=== PATIENT | male | born 1990 | race African-American/Black ===

== ENCOUNTER 2016-09-06 09:19 | Emergency (ER) | payer MEDICAID ==
[~2016-09-06] VITALS: Ht 180.3 cm; Wt 127.0 kg
[~2016-09-06 09:19] MED LIST: ALBUTEROL2.5 MG/3 M INH; LEVAQUIN500 MG ORAL; PREDNISONE10 MG ORAL; PROMETHAZINE-D118 ML ORAL; VENTOLIN HFA18 GM INH
[2016-09-06 11:15] VITALS: BP 148/81
[2016-09-06 11:17] VITALS: BP 148/81
--- NOTE | 2016-09-06 14:14 | Emergency Room Report ---
History of Present Illness General Chief Complaint: Wound Recheck/Suture Removal Source: Patient Present Illness HPI 26 YO M requesting wound/lac check. Patient endorses stabbing himself accidentally on grandma's fence last night. Had lac repaired at [facility] ED last night. Endorses wound oozing. Didnt full Rx for pain, Abx given at outside ED. Denies fever/chills, pus drainage from site. Allergies: Coded Allergies: PENICILLINS (Verified Allergy, Unknown, 05/01/16) Patient History Past Medical History: none Past Surgical History: none Pertinent Family History: none Social History: Denies: alcohol use, drug use, smoking Immunizations: UTD Reviewed Nursing Documentation: PMH: Agreed, PSxH: Agreed Nursing Documentation-PMH Past Medical History: No History, Except For Hx Asthma: Yes Review of Systems All Other Systems: negative except mentioned in HPI Physical Exam Vital Signs Date Time Temp Pulse Resp B/P Pulse Ox O2 Delivery O2 Flow Rate FiO2 09/06/16 10:15 98.4 97 20 148/81 100 Room Air Sp02 EP Interpretation: reviewed, normal General Appearance: normal inspection, well appearing, no apparent distress, alert Head: atraumatic ENT: normal ENT inspection, hearing grossly normal, normal voice Neck: normal inspection, full range of motion, supple, no bony tend Respiratory: normal inspection, lungs clear, normal breath sounds, no respiratory distress, no retraction, no wheezing Cardiovascular #1: regular rate, rhythm, no edema Gastrointestinal: normal inspection, normal bowel sounds, non tender, soft, no guarding, no hernia Genitourinary: no CVA tenderness Musculoskeletal: normal inspection, back normal, normal range of motion, Naty' s Sign negative Neurologic: normal inspection, alert, oriented x3, responsive, preassembler printed circuit board III-XII nml as tested, motor strength/tone normal, speech normal Psychiatric: normal inspection, judgement/insight normal, mood/affect normal Skin: normal inspection, normal color, no rash, other - Left inner thigh laceration: Blue sutures in place. No dehiscence. No pus. Healing well. Medical Decision Making Diagnostic Impression: Primary Impression: Suture check ER Course Mild oozing. No active infection. Pressure dressing place Advised keeping on for 24 hours then daily wound dressing change Reassured patient Advised filling Rx for Abx and Analgesia Return to [facility] for suture removal Last Vital Signs Date Time Temp Pulse Resp B/P Pulse Ox O2 Delivery O2 Flow Rate FiO2 09/06/16 11:17 98.4 20 148/81 100 Room Air 09/06/16 10:15 97 Status: improved Disposition: HOME, SELF-CARE Condition: Improved Referrals: [facility],REFERRING (PCP) Patient Instructions: Wound Check Additional Instructions: - Take ALL the antibiotics you were prescribed - Take T#3 as needed for pain - Keep pressure dressing on for 24 hours before changing - Followup at [facility] for suture removal AMANDA MCKEON M.D. Sep 06, 2016 14:14
== END 2016-09-06 11:13 | disposition home or self-care (01) ==
LOC: EMR 11:00
DX: S71.112D Laceration without foreign body, left thigh, subsequent encounter (principal); J45.909 Unspecified asthma, uncomplicated; Z88.0 Allergy status to penicillin
CPT/HCPCS: 99281

== ENCOUNTER 2016-09-21 20:47 | Emergency (ER) | payer MEDICAID ==
[~2016-09-21] VITALS: Ht 180.3 cm; Wt 127.0 kg
[2016-09-21] MEDS ORDERED: Hydrogen Peroxide 120ml Bottle TOPIC ONE (21:30)
[2016-09-21] MEDS ORDERED: PREDNISONE20 MG ORAL (21:33)
[2016-09-21] MEDS ORDERED: ALBUTEROL SULF8.5 GM INH (21:33)
[2016-09-21 23:47] VITALS: BP 121/84
[2016-09-21 23:48] VITALS: BP 121/84
--- NOTE | 2016-09-22 04:57 | Emergency Room Report ---
History of Present Illness General Chief Complaint: Upper Respiratory Illness Source: Patient Present Illness HPI Patient is a 26-year-old male presented after increased cough gradual onset of symptoms. Patient had some nasal congestion and as well as prior history of asthma. Patient also had some recent sutures placed and wanted suture removal the patient denied pain to the area or discharge.Patient reported having nonproductive cough. This is worse with supine position. Allergies: Coded Allergies: PENICILLINS (Verified Allergy, Unknown, 05/01/16) Patient History Reviewed Nursing Documentation: PMH: Agreed, PSxH: Agreed Nursing Documentation-PMH Past Medical History: No History, Except For Hx Asthma: Yes Review of Systems All Other Systems: negative except mentioned in HPI Physical Exam Vital Signs Date Time Temp Pulse Resp B/P Pulse Ox O2 Delivery O2 Flow Rate FiO2 09/21/16 21:01 98.2 80 14 119/80 100 Room Air General Appearance: well appearing, no apparent distress, alert, GCS 15, non- toxic Head: normocephalic, atraumatic ENT: hearing grossly normal, normal voice Neck: full range of motion, supple Respiratory: no respiratory distress, no accessory muscle use, speaking full sentences, wheezing, expiration Cardiovascular #1: normal peripheral pulses, regular rate, rhythm, no edema Musculoskeletal: normal inspection, no calf tenderness Neurologic: normal inspection, alert, oriented x3, responsive, normal gait Psychiatric: mood/affect normal Skin: no rash, other - healed laceration Medical Decision Making Diagnostic Impression: Primary Impression: Asthmatic bronchitis Additional Impression: Visit for suture removal ER Course Patient presented for cough.Differential diagnosis included but was not limited to bronchitis, pneumonia, pulmonary embolism, pericarditis, asthma, foreign body. Patient's benign exam and does not appear to require any further imaging or laboratory testing at this time. The patient declined breathing treatment. The patient given prescription for albuterol as well as prednisone. The patient was noted to have well-healed laceration and sutured removed. The patient is advised to follow up with primary care doctor in 1-2 days. Patient is advised to return if any worsening condition or if any changes in status that are concerning. Last Vital Signs Date Time Temp Pulse Resp B/P Pulse Ox O2 Delivery O2 Flow Rate FiO2 09/21/16 23:48 98.1 83 15 121/84 99 Room Air Status: improved Disposition: HOME, SELF-CARE Condition: Stable Scripts Albuterol Sulfate* (ALBUTEROL SULFATE MDI*) 8.5 Gm Hfa.aer.ad 2 PUFF INH Q4H Y for cough/wheezing, #1 EA 0 Refills Prov: Javed Martínez 09/21/16 Prednisone* (PREDNISONE*) 20 Mg Tablet 40 MG ORAL DAILY, #10 TAB Prov: Javed Martínez 09/21/16 Patient Instructions: Upper Respiratory Infection, Adult, Suture Removal, Care After Javed Martínez Sep 22, 2016 04:57
== END 2016-09-21 23:50 | disposition home or self-care (01) ==
LOC: EMR 21:20
DX: J45.909 Unspecified asthma, uncomplicated (principal); Z48.02 Encounter for removal of sutures; Z88.0 Allergy status to penicillin
CPT/HCPCS: 99284

== ENCOUNTER 2017-01-08 12:02 | Emergency (ER) | payer MEDICAID ==
[~2017-01-08] VITALS: Ht 180.3 cm; Wt 124.7 kg
[~2017-01-08 12:02] MED LIST changes: +ALBUTEROL SULF8.5 GM INH; +PREDNISONE20 MG ORAL
[2017-01-08 12:15] VITALS: BP 134/81
[2017-01-08] MEDS ORDERED: Norco 7.5mg/325mg tab ONE (12:24)
[2017-01-08] MEDS ORDERED: Norco 7.5mg/325mg tab ORAL ONE (12:30)
--- NOTE | 2017-01-08 12:32 | Emergency Room Report ---
History of Present Illness General Chief Complaint: Pain Source: Patient Present Illness HPI 26-year-old male presents emergency department complaining of 7/10 in severity pain after stubbing his toe on 01/03. Patient has appointment with package winder in 2 days however patient reports for continued pain. Patient states that his toenail was almost completely torn off. She denies bone pain. Reports significant tenderness and that he is noticing some redness about the cuticle. Denies numbness tingling or loss of sensation or gross motor movements of the extremities, incontinence of bowel or bladder. Denies CP, Palpitations, LOC, AMS , dizziness, Changes in Vision, Sensation, paresthesias, or a sudden severe headache. Allergies: Coded Allergies: PENICILLINS (Verified Allergy, Unknown, 05/01/16) Patient History Past Medical History: see triage record Past Surgical History: none Pertinent Family History: none Reviewed Nursing Documentation: PMH: Agreed, PSxH: Agreed Nursing Documentation-PMH Hx Asthma: Yes Review of Systems All Other Systems: negative except mentioned in HPI Physical Exam Vital Signs Date Time Temp Pulse Resp B/P Pulse Ox O2 Delivery O2 Flow Rate FiO2 01/08/17 12:05 97.9 102 16 134/81 98 Room Air Sp02 EP Interpretation: reviewed, abnormal - tachycardic at 102 General Appearance: no apparent distress, alert, GCS 15, non-toxic Head: normocephalic, atraumatic Eyes: bilateral eye PERRL, bilateral eye normal inspection ENT: hearing grossly normal, normal pharynx, no angioedema, normal voice Neck: full range of motion, supple/symm/no masses Respiratory: lungs clear, normal breath sounds, speaking full sentences Cardiovascular #1: regular rate, rhythm, no edema, normal capillary refill Gastrointestinal: normal bowel sounds, non tender, soft, no guarding, no rebound Rectal: deferred Genitourinary: normal inspection, no CVA tenderness Musculoskeletal: back normal, gait/station normal, normal range of motion, non- tender - no bony ttp of the left great toe. , no calf tenderness Neurologic: alert, oriented x3, responsive, motor strength/tone normal, sensory intact, speech normal Psychiatric: judgement/insight normal, memory normal, mood/affect normal Skin: normal color, no rash, warm/dry, well hydrated, other - left great toe nail avulsion, possible secondary infection with erythema and swelling noted about the cuticle , no sub-ungual hematoma, nail is free to allow drainage Medical Decision Making PA Attestation Dr. mondragon is my supervising Physician whom patient management has been discussed with. Diagnostic Impression: Primary Impression: Nail avulsion, toe Qualified Codes: S91.209A - Unspecified open wound of unspecified toe(s) with damage to nail, initial encounter Additional Impression: Paronychia of great toe of left foot ER Course 26-year-old male presents emergency department complaining of 7/10 in severity pain after stubbing his toe on 01/03. Patient has appointment with package winder in 2 days however patient reports for continued pain. Patient states that his toenail was almost completely torn off. She denies bone pain. Reports significant tenderness and that he is noticing some redness about the cuticle. Denies numbness tingling or loss of sensation or gross motor movements of the extremities, incontinence of bowel or bladder. Denies CP, Palpitations, LOC, AMS , dizziness, Changes in Vision, Sensation, paresthesias, or a sudden severe headache. Ddx considered but are not limited to Fracture, dislocation, contusion, nail avulsion , laceration Sprain/Strain/Spasm, eponychia, paronychia. Vital signs: are WNL, pt. is afebrile H&PE are most consistent with left great toe nail avulsion, possible secondary infection with erythema and swelling noted about the cuticle , no sub-ungual hematoma, nail is free to allow drainage. ORDERS: An apartment at this time as the diagnosis is clinical. ED INTERVENTIONS: -None required at this time as the diagnosis is clinical - Pt states he would rather have nail removal performed by package winder. - [place] PO DISCHARGE: At this time pt. is stable for d/c to home. Will provide printed patient care instructions, and any necessary prescriptions. Care plan and follow up instructions have been discussed with the patient prior to discharge. Last Vital Signs Date Time Temp Pulse Resp B/P Pulse Ox O2 Delivery O2 Flow Rate FiO2 01/08/17 12:05 97.9 102 16 134/81 98 Room Air Disposition: HOME, SELF-CARE Condition: Stable Scripts Ibuprofen* (MOTRIN*) 600 Mg Tablet 600 MG ORAL THREE TIMES A DAY, #30 TAB 0 Refills Prov: Rosetta Marcano 01/08/17 Hydrocodone Bit/Acetaminophen 7.5-325* (NORCO 7.5-325*) 1 Each Tablet 1 TAB ORAL Q8HR Y for For Pain, #9 TAB 0 Refills Prov: Rosetta Marcano 01/08/17 Doxycycline Hyclate* (VIBRAMYCIN*) 100 Mg Capsule 100 MG ORAL EVERY 12 HOURS for 7 Days, #14 CAP 0 Refills Prov: Rosetta Marcano 01/08/17 Patient Instructions: Nail Avulsion Additional Instructions: Take antibiotic medications as directed. Follow up with Documentation Analyst in 3-5 days for Nail removal. Return sooner to ED if new symptoms occur, or current symptoms become worse. - Please note that this Emergency Department Report was dictated using Jiberishinteractive media director technology software, occasionally this can lead to erroneous entry secondary to interpretation by the dictation equipment. Rosetta Marcano Jan 08, 2017 12:32
[2017-01-08] MEDS ORDERED: VIBRAMYCIN100 MG ORAL (12:34)
[2017-01-08] MEDS ORDERED: IBUPROFEN600 MG ORAL (12:35)
[2017-01-08] MEDS ORDERED: NORCO 7.5-3251 EACH ORAL (12:35)
[2017-01-08 12:39] VITALS: BP 134/81
== END 2017-01-08 12:39 | disposition home or self-care (01) ==
LOC: EMR 12:15
DX: S91.209A Unspecified open wound of unspecified toe(s) with damage to nail, initial encounter (principal); L03.032 Cellulitis of left toe; J45.909 Unspecified asthma, uncomplicated; Z88.0 Allergy status to penicillin; W22.09XA Striking against other stationary object, initial encounter; Y92.9 Unspecified place or not applicable
CPT/HCPCS: 99284

== ENCOUNTER 2017-03-26 16:13 | Emergency (ER) | payer MEDICAID ==
[~2017-03-26] VITALS: Ht 180.3 cm; Wt 120.2 kg
[~2017-03-26 16:13] MED LIST changes: +IBUPROFEN600 MG ORAL; +NORCO 7.5-3251 EACH ORAL; +VIBRAMYCIN100 MG ORAL
[2017-03-26 16:38] VITALS: BP 148/79
[2017-03-26] MEDS ORDERED: Albuterol ud Inhalation HHN ONE (17:00)
[2017-03-26] MEDS ORDERED: VENTOLIN HFA18 GM INH (17:25)
[2017-03-26] MEDS ORDERED: PREDNISONE20 MG ORAL (17:25)
[2017-03-26] MEDS ORDERED: ADVAIR 100-501 EACH INH (17:25)
--- NOTE | 2017-03-26 17:36 | Emergency Room Report ---
History of Present Illness General Chief Complaint: Flu Like Symptoms Source: Patient Present Illness HPI 26YOM known asthmatic and + smoker with 2-3 days productive cough, chest tightness Using albuterol every day Supposed to be on advair but doesnt take it - ran out of Rx while ago Denies fever/chills Not on prednisone Patient in waiting room playing on [employer], no acute distress Allergies: Coded Allergies: PENICILLINS (Verified Allergy, Unknown, 05/01/16) Patient History Past Medical History: asthma Past Surgical History: none Pertinent Family History: none Social History: Reports: smoking Immunizations: UTD Reviewed Nursing Documentation: PMH: Agreed, PSxH: Agreed Nursing Documentation-PMH Hx Asthma: Yes Review of Systems All Other Systems: negative except mentioned in HPI Physical Exam Vital Signs Date Time Temp Pulse Resp B/P (MAP) Pulse Ox O2 Delivery O2 Flow Rate FiO2 03/26/17 16:29 98.1 88 20 145/82 99 Room Air Sp02 EP Interpretation: reviewed, normal General Appearance: normal inspection, well appearing, no apparent distress, alert, GCS 15, non-toxic, obese, other - Well appearing, no acute distress. sitting calmly in chair Head: normocephalic, atraumatic Eyes: bilateral eye PERRL, bilateral eye EOMI ENT: normal ENT inspection, hearing grossly normal, normal voice Neck: normal inspection, full range of motion, supple, no bony tend Respiratory: normal inspection, lungs clear, normal breath sounds, no rhonchi, no respiratory distress, no retraction, no accessory muscle use, speaking full sentences, wheezing Cardiovascular #1: regular rate, rhythm, no edema Gastrointestinal: normal inspection, normal bowel sounds, non tender, soft, no guarding, no hernia Genitourinary: no CVA tenderness Musculoskeletal: normal inspection, back normal, normal range of motion, Naty' s Sign negative Neurologic: normal inspection, alert, oriented x3, responsive, wheel loader operator III-XII nml as tested, motor strength/tone normal, speech normal Psychiatric: normal inspection, judgement/insight normal, mood/affect normal Skin: normal inspection, normal color, no rash Medical Decision Making Diagnostic Impression: Primary Impression: Bronchitis ER Course 26YOM with likely acute bronchitis Mild end-exp wheeze on auscultation Was given 1 neb, prednisone for URI symptom, ?mild asthma exac CXR unchanged from Apr 2016 - no acute PNA or PTX Will start on Advair given number of times patient uses albuterol - likely moderate/severe asthma requiring long-acting steroid DC home with PMD followup Chest X-Ray Diagnostic Results Chest X-Ray Diagnostic Results : Chest X-Ray Ordered: Yes # of Views/Limited/Complete: 1 View Indication: Shortness of Breath EP Interpretation: Yes Interpretation: no consolidation, no effusion, no pneumothorax, no acute cardiopulmonary disease Impression: No acute disease Electronically Signed by: Dr Amanda Mckeon MD Last Vital Signs Date Time Temp Pulse Resp B/P (MAP) Pulse Ox O2 Delivery O2 Flow Rate FiO2 03/26/17 16:59 84 17 94 Room Air 03/26/17 16:38 98.1 148/79 Status: improved Disposition: HOME, SELF-CARE Condition: Improved Scripts Prednisone* (PREDNISONE*) 20 Mg Tablet 40 MG ORAL DAILY for 3 Days, #6 TAB Prov: AMANDA MCKEON M.D. 03/26/17 Albuterol Sulfate (VENTOLIN HFA) 18 Gm Hfa.aer.ad 1 PUFF INH EVERY 6 HOURS for cough, SOB, chest tightness, #18 GM 0 Refills Prov: AMANDA MCKEON M.D. 03/26/17 Fluticasone/Salmeterol (Advair 100-50 Diskus) 1 Each Blst.w.dev 1 PUFF INH TWICE A DAY for 7 Days, #1 EA Prov: AMANDA MCKEON M.D. 03/26/17 Patient Instructions: Asthma, Adult, [id number] Additional Instructions: - Start taking Advair TWICE daily no matter what - Use ventolin only as needed for rescue medication for cough, chest tightness, wheezing - Take prednisone next 3 days - Follow up with your primary care doctor in 3-4 days AMANDA MCKEON M.D. Mar 26, 2017 17:36
[2017-03-26 18:40] VITALS: BP_SYST 148; BP_SYST 152; BP_DIAS 79; BP_DIAS 81
--- NOTE | 2017-03-27 12:33 | Diagnostic Imaging Report ---
Indication: SOB Technique: One view of the chest Comparison: 05/01/2016 Findings: Lungs and pleural spaces are clear. Heart size is normal. No significant change Impression: No acute process
== END 2017-03-26 18:55 | disposition home or self-care (01) ==
LOC: EMR 17:58
DX: J20.9 Acute bronchitis, unspecified (principal); F17.200 Nicotine dependence, unspecified, uncomplicated; Z88.0 Allergy status to penicillin; E66.9 Obesity, unspecified; Z68.37 Body mass index [BMI] 37.0-37.9, adult
CPT/HCPCS: 71010; 99284

== ENCOUNTER 2018-05-21 19:41 | Emergency (ER) | payer MEDICAID ==
[~2018-05-21] VITALS: Ht 180.3 cm; Wt 117.9 kg
[~2018-05-21 19:41] MED LIST changes: +ADVAIR 100-501 EACH INH
[2018-05-21 20:00] VITALS: BP 126/86
[2018-05-21] MEDS ORDERED: ALBUTEROL SULF8.5 GM INH (20:47)
[2018-05-21] MEDS ORDERED: PROMETHAZINE-C118 M1 ORAL (20:47)
[2018-05-21] MEDS ORDERED: PREDNISONE20 MG ORAL (20:47)
[2018-05-21 20:50] VITALS: BP 122/83
--- NOTE | 2018-05-22 12:41 | Diagnostic Imaging Report ---
Indication: Pain Technique: XRAY Ankle Compl Min 3v R Comparison: None FINDINGS/IMPRESSION: Slight irregularity of the medial malleolus without definite cortical break. Findings may be on the basis of remote trauma. Additionally, there is a well-circumscribed ossific density projecting just inferior to the tip of the lateral malleolus which may represent accessory ossicle or be related to remote/chronic trauma. Ankle mortise is intact. Likely small os trigonum. Otherwise imaged hindfoot unremarkable. No significant ankle joint effusion. No radiopaque foreign body identified.
--- NOTE | 2018-05-22 16:29 | Emergency Room Report ---
History of Present Illness General Chief Complaint: Pain Source: Patient Present Illness HPI 27-year-old male presents ED for evaluation. States that few weeks ago he was running and stepped into a pothole. States that he's been feeling a clicking sensation in his right ankle since then. Pain is minimal, dull, 3 out of 10, nonradiating. Worse with physical exertion. Denies pain at this time. Patient states that he also has a cough for the last few days. Dry. History of asthma. Has had bronchitis in the past. Denies sick contacts or recent travel. Denies shortness of breath. No other aggravating relieving factors. Denies any other associated symptoms Allergies: Coded Allergies: PENICILLINS (Verified Allergy, Unknown, 05/01/16) Patient History Past Medical History: none, asthma Past Surgical History: none Pertinent Family History: none Social History: Denies: smoking, alcohol use, drug use Immunizations: UTD Reviewed Nursing Documentation: PMH: Agreed; PSxH: Agreed Nursing Documentation-PMH Past Medical History: No History, Except For Hx Asthma: Yes Review of Systems All Other Systems: negative except mentioned in HPI Physical Exam Vital Signs Date Time Temp Pulse Resp B/P (MAP) Pulse Ox O2 Delivery O2 Flow Rate FiO2 05/21/18 19:48 97.9 89 16 126/86 97 Room Air Sp02 EP Interpretation: reviewed, normal General Appearance: no apparent distress, alert, GCS 15, non-toxic Head: normocephalic Eyes: bilateral eye normal inspection, bilateral eye PERRL ENT: normal ENT inspection Neck: normal inspection Respiratory: chest non-tender, lungs clear, normal breath sounds, speaking full sentences Cardiovascular #1: normal inspection Gastrointestinal: normal inspection Rectal: deferred Genitourinary: no CVA tenderness Musculoskeletal: back normal, gait/station normal, normal range of motion, tender - medial malleolus Neurologic: alert, oriented x3, responsive, motor strength/tone normal, sensory intact, speech normal Psychiatric: normal inspection Skin: normal inspection Lymphatic: normal inspection Medical Decision Making Diagnostic Impression: Primary Impression: Ankle pain Qualified Codes: M25.571 - Pain in right ankle and joints of right foot Additional Impression: Bronchitis ER Course Hospital Course 27-year-old M presents to ED complaining of R ankle pain s/p trip. c/o cough Differential diagnoses include: Fracture, dislocation, sprain, contusion Clinical course Patient placed on stretcher. After initial history and physical, I ordered xrays of R ankle Xrays prelim read shows no acute fracture/dislocation. Discussed findings with patient. Patient declined Rom wrap. We'll provide orthopedic referral Lungs clear. Consistent with bronchitis. We will prescribe inhaler, steroids, cough medication. Safely discharged close outpatient follow-up Diagnosis - ankle sprain, bronchitis Stable and discharged to home with prescription for albuterol, prednisone, promethazine/codeine. apply ice, keep elevated. weight bear as tolerated. Followup with PMD/ortho. Return to ED if symptoms recur or worsen Other X-Ray Diagnostic Results Other X-Ray Diagnostic Results : X-Ray ordered: R ankle # of Views/Limited Vs Complete: 3 View Indication: Pain EP Interpretation: Yes - a Interpretation: no dislocation, no soft tissue swelling, no fractures Impression: No acute disease Electronically Signed by: Electronically signed by David Cee MD Last Vital Signs Date Time Temp Pulse Resp B/P (MAP) Pulse Ox O2 Delivery O2 Flow Rate FiO2 05/21/18 20:50 97.9 82 16 122/83 97 Room Air Status: improved Disposition: HOME, SELF-CARE Condition: Stable Scripts Codeine/Promethazine Hcl* (PROMETHAZINE-CODEINE SYRUP*) 118 Ml Syrup 5 ML ORAL Q6H PRN for For Cough, #118 ML 0 Refills Prov: David Cee MD 05/21/18 Prednisone* (PREDNISONE*) 20 Mg Tablet 40 MG ORAL DAILY, #10 TAB Prov: David Cee MD 05/21/18 Albuterol Sulfate* (ALBUTEROL SULFATE MDI*) 8.5 Gm Hfa.aer.ad 2 PUFF INH Q4H, #1 INH 0 Refills Prov: David Cee MD 05/21/18 Referrals: [facility],REFERR[facility] (PCP) Patient Instructions: Acute Bronchitis, Dimn-dg-Pocs David Cee MD May 22, 2018 16:29
== END 2018-05-21 21:00 | disposition home or self-care (01) ==
LOC: EMR 20:53
DX: M25.571 Pain in right ankle and joints of right foot (principal); J20.9 Acute bronchitis, unspecified; Z88.0 Allergy status to penicillin
CPT/HCPCS: 99283

== ENCOUNTER 2018-09-04 22:55 | Emergency (ER) | payer MEDICAID ==
[~2018-09-04] VITALS: Ht 180.3 cm; Wt 124.7 kg
[~2018-09-04 22:55] MED LIST changes: +PROMETHAZINE-C118 M1 ORAL
[2018-09-04 23:20] VITALS: BP 133/91
--- NOTE | 2018-09-04 23:20 | NUR ---
ER Nurse Note: Pt came from home c/o shortness of breath assoicated with cough since 08/31/18. Pt stated he has congestion, phlegm, and headache. Pt does not have fever, n/v. Pt a&ox4, VSS, no signs of distress. Clear lung sounds heard in all quadrants. ERMD at pt side; will continue to montior.
[2018-09-04] MEDS ORDERED: Albuterol ud Inhalation HHN ONE (23:30)
[2018-09-04] MEDS ORDERED: Ipratropium 0.02% Inh Soln 2.5ml UD HHN ONE (23:30)
[2018-09-04] MEDS ORDERED: BACTRIM DS TAB1 EAC1 ORAL (23:35)
[2018-09-04] MEDS ORDERED: FLONASE ALLERG9.9 ML NS (23:35)
--- NOTE | 2018-09-04 23:36 | Emergency Room Report ---
History of Present Illness General Chief Complaint: Upper Respiratory Illness Source: Patient Present Illness HPI Is a 28-year-old male with history of high blood pressure. He presents with chief complaint of sinus congestion for the last month. Was here before and placed on antibiotics. She got slightly better but worse in again. No fever or chills. Greenish discharge. No nausea no vomiting no fever or chills. Has fullness to his ear. Denies any other complaint. Allergies: Coded Allergies: PENICILLINS (Verified Allergy, Unknown, 05/01/16) Patient History Past Medical History: see triage record, old chart reviewed Past Surgical History: none Pertinent Family History: none Social History: Denies: smoking Immunizations: other Reviewed Nursing Documentation: PMH: Agreed; PSxH: Agreed Nursing Documentation-PMH Past Medical History: No History, Except For Hx Asthma: Yes Review of Systems Eye: Denies: eye pain, blurred vision ENT: Reports: nose congestion; Denies: ear pain, throat swelling Respiratory: Denies: cough, shortness of breath Cardiovascular: Denies: chest pain, palpitations Gastrointestinal: Denies: abdominal pain, diarrhea, nausea, vomiting Musculoskeletal: Denies: back pain, joint pain Skin: Denies: rash Neurological: Denies: headache, numbness Endocrine: Denies: increased thirst, increased urine Hematologic/Lymphatic: Denies: easy bruising All Other Systems: negative except mentioned in HPI Physical Exam Vital Signs Date Time Temp Pulse Resp B/P (MAP) Pulse Ox O2 Delivery O2 Flow Rate FiO2 09/04/18 23:03 98.2 99 12 133/91 96 vitals normal Sp02 EP Interpretation: reviewed, normal General Appearance: well appearing, no apparent distress, alert Head: normocephalic, atraumatic Eyes: bilateral eye PERRL, bilateral eye EOMI ENT: hearing grossly normal, normal pharynx, other - Sinus tenderness Neck: full range of motion, supple, no meningismus Respiratory: chest non-tender, lungs clear, normal breath sounds Cardiovascular #1: regular rate, rhythm, no murmur Gastrointestinal: normal bowel sounds, non tender, no mass, no organomegaly, no bruit, non-distended Musculoskeletal: back normal, gait/station normal, normal range of motion Psychiatric: mood/affect normal Skin: warm/dry Medical Decision Making Diagnostic Impression: Primary Impression: Sinusitis, acute Qualified Codes: J01.90 - Acute sinusitis, unspecified ER Course Patient presents with sinusitis. No evidence of meningitis or sepsis. We'll discharge home with antibiotics since his been ongoing for a month. Will need ENT referral. Last Vital Signs Date Time Temp Pulse Resp B/P (MAP) Pulse Ox O2 Delivery O2 Flow Rate FiO2 09/04/18 23:03 98.2 99 12 133/91 96 Status: unchanged Disposition: HOME, SELF-CARE Condition: Stable Scripts Fluticasone Propionate (Flonase Allergy Relief) 9.9 Ml [place].susp 9.9 ML NS BID, #1 UNIT Prov: Roel Kline MD 09/04/18 Trimethoprim/Sulfamethoxazole 160/800* (BACTRIM DS TABLET*) 1 Each Tablet 1 TAB ORAL Q12H, #42 TAB 0 Refills Prov: Roel Kline MD 09/04/18 Additional Instructions: Follow-up with your doctor in a week. You may need a referral to see ENT doctor. Return if symptom worsen. Roel Kline MD Sep 04, 2018 23:36
[2018-09-04] MEDS ORDERED: ZITHROMAX250 MG ORAL (23:53)
[2018-09-04] MEDS ORDERED: PREDNISONE20 MG ORAL (23:53)
--- NOTE | 2018-09-04 23:53 | Emergency Room Report ---
History of Present Illness General Chief Complaint: Upper Respiratory Illness Source: Patient Present Illness HPI Is a 28-year-old male with a history of asthma. He presents with chief complaint of coughing and wheezing. No nausea no vomiting. No fever chills with coughing up with greenish sputum. Worse with inspiration. Still using his inhaler. No other complaint. No intubation. Last steroid use was over 6 months ago. Allergies: Coded Allergies: PENICILLINS (Verified Allergy, Unknown, 05/01/16) Patient History Past Medical History: see triage record, old chart reviewed, asthma Past Surgical History: none Pertinent Family History: none Social History: Denies: smoking Immunizations: other Reviewed Nursing Documentation: PMH: Agreed; PSxH: Agreed Nursing Documentation-PMH Past Medical History: No History, Except For Hx Asthma: Yes Review of Systems Eye: Denies: eye pain, blurred vision ENT: Denies: ear pain, nose congestion, throat swelling Respiratory: Reports: cough, shortness of breath, wheezing Cardiovascular: Denies: chest pain, palpitations Gastrointestinal: Denies: abdominal pain, diarrhea, nausea, vomiting Musculoskeletal: Denies: back pain, joint pain Skin: Denies: rash Neurological: Denies: headache, numbness Endocrine: Denies: increased thirst, increased urine Hematologic/Lymphatic: Denies: easy bruising All Other Systems: negative except mentioned in HPI Physical Exam Vital Signs Date Time Temp Pulse Resp B/P (MAP) Pulse Ox O2 Delivery O2 Flow Rate FiO2 09/04/18 23:03 98.2 99 12 133/91 96 09/04/18 23:20 Room Air 09/04/18 23:38 21 vitals normal Sp02 EP Interpretation: reviewed, normal General Appearance: well appearing, no apparent distress, alert Head: normocephalic, atraumatic Eyes: bilateral eye PERRL, bilateral eye EOMI ENT: hearing grossly normal, normal pharynx Neck: full range of motion, supple, no meningismus Respiratory: chest non-tender, wheezing Cardiovascular #1: regular rate, rhythm, no murmur Gastrointestinal: normal bowel sounds, non tender, no mass, no organomegaly, no bruit, non-distended Musculoskeletal: back normal, gait/station normal, normal range of motion Psychiatric: mood/affect normal Skin: warm/dry Medical Decision Making Diagnostic Impression: Primary Impression: Upper respiratory infection Qualified Codes: J06.9 - Acute upper respiratory infection, unspecified Additional Impression: Asthmatic bronchitis Qualified Codes: J45.21 - Mild intermittent asthma with (acute) exacerbation ER Course Patient with with asthma exacerbation. Looks well. Notice any sepsis or pneumonia. We'll discharge home. Last Vital Signs Date Time Temp Pulse Resp B/P (MAP) Pulse Ox O2 Delivery O2 Flow Rate FiO2 09/04/18 23:45 74 18 Room Air 21 09/04/18 23:38 94 09/04/18 23:20 98.7 133/91 Status: improved Disposition: HOME, SELF-CARE Condition: Stable Scripts Azithromycin* (ZITHROMAX*) 250 Mg Tablet 250 MG ORAL DAILY, #6 TAB 0 Refills Take two tables once daily for 1 day, then one tablet once daily for 4 days. Prov: Roel Kline MD 09/04/18 Prednisone* (PREDNISONE*) 20 Mg Tablet 40 MG ORAL DAILY, #8 TAB Prov: Roel Kline MD 09/04/18 Additional Instructions: Follow-up with your doctor in a week. Return if symptom worsen. Roel Kline MD Sep 04, 2018 23:53
[2018-09-05] MEDS ORDERED: ALBUTEROL2.5 MG/3 M HHN (00:20)
[2018-09-05 00:24] VITALS: BP 140/72
--- NOTE | 2018-09-05 00:24 | NUR ---
ER DISCHARGE NOTE: Patient is cleared to be discharged per ERMD, pt is aox4, on room air, with stable vital signs. pt was given dc and prescription instructions. pt refused to sig dc paperwork. informed ermd and charge nurse, pt id band removed. pt is able to ambulate with steady gait. pt took all belongings.
== END 2018-09-05 00:30 | disposition home or self-care (01) ==
LOC: EMR 23:14
DX: J01.90 Acute sinusitis, unspecified (principal); J45.909 Unspecified asthma, uncomplicated; Z88.0 Allergy status to penicillin
CPT/HCPCS: 94640; 94664; 99284; J7512

== ENCOUNTER 2018-09-11 23:52 | Emergency (ER) | payer MEDICAID ==
[~2018-09-11] VITALS: Ht 180.3 cm; Wt 127.0 kg
[~2018-09-11 23:52] MED LIST changes: +ALBUTEROL2.5 MG/3 M HHN; +BACTRIM DS TAB1 EAC1 ORAL; +FLONASE ALLERG9.9 ML NS; +ZITHROMAX250 MG ORAL
[2018-09-12] VITALS: BP 154/99
--- NOTE | 2018-09-12 | NUR ---
ED Nurse Note: Patient walk in c/o cough for 1 week. Patient was seen at [facility] 5 days ago for same cough. Patient was prescribed prednisone. Patient states no relief. Patient states it is worse at night.
[2018-09-12] MEDS ORDERED: Albuterol/Ipratropium 3ml neb ONE (01:26)
[2018-09-12] MEDS ORDERED: GUAIFENESIN DM118 M1 ORAL (02:00)
[2018-09-12 02:25] VITALS: BP 154/99
--- NOTE | 2018-09-12 02:25 | NUR ---
ER DISCHARGE NOTE: Patient is cleared to be discharged per ERMD, pt is aox4, on room air, with stable vital signs. pt was given dc and prescription instructions, pt was able to verbalize understanding, pt id band removed without complications. pt is able to ambulate with steady gait. pt took all belongings.
[2018-09-12] MEDS ORDERED: Albuterol/Ipratropium 3ml neb HHN ONE (03:45)
--- NOTE | 2018-09-12 04:25 | Emergency Room Report ---
History of Present Illness General Chief Complaint: Upper Respiratory Illness Source: Patient Present Illness HPI Patient is 28-year-old male presented after increased difficulty breathing. Patient had recently seen by me. He was started on prednisone as well as albuterol. He had prior history of asthma. He reports of increased work of breathing. He states that he had finished the steroids and began having increased difficulty breathing again. Allergies: Coded Allergies: PENICILLINS (Verified Allergy, Unknown, 05/01/16) Patient History Past Medical History: see triage record Reviewed Nursing Documentation: PMH: Agreed; PSxH: Agreed Nursing Documentation-PMH Past Medical History: No History, Except For Hx Asthma: Yes Review of Systems All Other Systems: negative except mentioned in HPI Physical Exam Vital Signs Date Time Temp Pulse Resp B/P (MAP) Pulse Ox O2 Delivery O2 Flow Rate FiO2 09/11/18 23:55 98.2 102 16 154/99 97 09/12/18 03:37 Room Air 21 General Appearance: well appearing, no apparent distress, alert, GCS 15 Head: normocephalic, atraumatic ENT: hearing grossly normal, normal voice Neck: full range of motion, supple Respiratory: no respiratory distress, speaking full sentences Gastrointestinal: normal inspection Musculoskeletal: no calf tenderness Neurologic: normal inspection, alert, oriented x3, responsive, normal gait Psychiatric: mood/affect normal Skin: no rash Medical Decision Making Diagnostic Impression: Primary Impression: Upper respiratory infection ER Course Patient present for cough. Differential diagnosis included but was not limited to bronchitis, pneumonia, pulmonary embolism, pericarditis, asthma, foreign body. Patient has a benign exam and does not appear to require any laboratory testing at this time EKG interpreted by me showed normal sinus rhythm without acute ST or T wave changes. Chest x-ray 1 view interpreted by me showed normal normal cardiac size without evident infiltrate. Patient given breathing treatment with improved improvement of symptoms. Patient was discharged home. He is advised to follow-up with his primary care physician for recheck. Last Vital Signs Date Time Temp Pulse Resp B/P (MAP) Pulse Ox O2 Delivery O2 Flow Rate FiO2 09/12/18 03:40 90 20 99 Room Air 21 09/12/18 02:25 98.2 154/99 Status: improved Disposition: HOME, SELF-CARE Condition: Stable Scripts Guaifenesin/Dextromethorphan (Guaifenesin Dm Syrup) 5 Ml Syrup 1 TSP ORAL Q8H, #118 ML 0 Refills Prov: Javed Martínez MD 09/12/18 Referrals: [facility],REFERRING (PCP) Patient Instructions: Upper Respiratory Infection, Adult Javed Martínez MD Sep 12, 2018 04:25
== END 2018-09-12 02:25 | disposition home or self-care (01) ==
LOC: EMR 09-12 00:09
DX: J06.9 Acute upper respiratory infection, unspecified (principal); J45.909 Unspecified asthma, uncomplicated; Z88.0 Allergy status to penicillin
CPT/HCPCS: 94640; 94664; 99284; J7620

== ENCOUNTER 2019-01-18 11:23 | Emergency (ER) | payer MEDICAID ==
[~2019-01-18] VITALS: Ht 180.3 cm; Wt 124.7 kg
[~2019-01-18 11:23] MED LIST changes: +GUAIFENESIN DM118 M1 ORAL
[2019-01-18 11:32] VITALS: BP 128/73
[2019-01-18] MEDS ORDERED: ALBUTEROL SULF8.5 GM INH (11:54)
[2019-01-18 12:25] VITALS: BP 128/73
--- NOTE | 2019-01-18 13:53 | Emergency Room Report ---
History of Present Illness General Chief Complaint: Upper Respiratory Illness Source: Patient Present Illness HPI Patient presents with his son with reports of increased cough and congestion He reports that he feels that his asthma is exacerbated with working out Denies any chest pain denies any fevers Denies any recent travel patient has had previous asthma in the past Denies any vomiting or diarrhea Allergies: Coded Allergies: PENICILLINS (Verified Allergy, Unknown, 05/01/16) Patient History Past Medical History: see triage record Pertinent Family History: none Reviewed Nursing Documentation: PMH: Agreed; PSxH: Agreed Nursing Documentation-PMH Past Medical History: No History, Except For Hx Asthma: Yes Review of Systems All Other Systems: negative except mentioned in HPI Physical Exam Vital Signs Date Time Temp Pulse Resp B/P (MAP) Pulse Ox O2 Delivery O2 Flow Rate FiO2 01/18/19 11:32 98.4 20 128/73 98 Room Air 01/18/19 11:32 91 Sp02 EP Interpretation: reviewed, normal General Appearance: well appearing, no apparent distress Head: normocephalic, atraumatic Eyes: bilateral eye PERRL, bilateral eye EOMI ENT: hearing grossly normal, normal pharynx, TMs + canals normal, uvula midline Neck: full range of motion, supple, no meningismus, no bony tend Respiratory: lungs clear, normal breath sounds, no rhonchi, no respiratory distress, no retraction, no accessory muscle use Cardiovascular #1: normal peripheral pulses, regular rate, rhythm, no edema, no gallop, no JVD, no murmur Gastrointestinal: normal bowel sounds, non tender, soft, no mass, no organomegaly, non-distended, no guarding, no hernia, no pulsatile mass, no rebound Genitourinary: no CVA tenderness Musculoskeletal: normal inspection Neurologic: oriented x3, responsive, yarn packer III-XII nml as tested, motor strength/ tone normal, sensory intact Psychiatric: mood/affect normal Skin: no rash Lymphatic: normal inspection, no adenopathy Medical Decision Making Diagnostic Impression: Primary Impression: Upper respiratory infection ER Course Multiple differentials and consideration Patient's lung sounds are at baseline levels at this time and asking further he does report that he feels significantly improved after using his inhaler at home He reports that he was here mainly to be seen for his son And will have initial conservative outpatient trial Last Vital Signs Date Time Temp Pulse Resp B/P (MAP) Pulse Ox O2 Delivery O2 Flow Rate FiO2 01/18/19 12:25 98.4 18 128/73 98 Room Air 01/18/19 11:48 90 Status: unchanged Disposition: HOME, SELF-CARE Condition: Stable Scripts Albuterol Sulfate* (ALBUTEROL SULFATE MDI*) 8.5 Gm Hfa.aer.ad 2 PUFF INH Q6H, #1 EA 0 Refills Prov: Uri Kramer DO 01/18/19 Referrals: NON PHYSICIAN (PCP) [facility] Patient Instructions: Upper Respiratory Infection, Adult Additional Instructions: Patient is provided with the discharge instructions notified to follow up with primary doctor in the next 2-3 days otherwise return to the er with any worsening symptoms. Please note that this report is being documented using [employer] technology. This can lead to erroneous entry secondary to incorrect interpretation by the dictating instrument. Uri Kramer DO Jan 18, 2019 13:53
== END 2019-01-18 12:25 | disposition home or self-care (01) ==
LOC: EMR 12:00
DX: J06.9 Acute upper respiratory infection, unspecified (principal); J45.909 Unspecified asthma, uncomplicated
CPT/HCPCS: 99282

== ENCOUNTER 2019-03-20 17:19 | Emergency (ER) | payer MEDICAID ==
[~2019-03-20] VITALS: Ht 180.3 cm; Wt 127.0 kg
--- NOTE | 2019-03-20 17:39 | Emergency Room Report ---
History of Present Illness General Chief Complaint: Upper Respiratory Illness Source: Medical Record Present Illness HPI 28-year-old male with history of asthma here requesting a refill on his albuterol inhaler. Patient denies any asthma exacerbation cough and congestion reports that he smokes marijuana daily and has noticed more wheezing in the morning. Denies chest pain, shortness of breath, palpitation, abdominal pain, nausea vomiting. Denies cough and congestion. Patient also reports that he noticed a penile lesion on the right lateral side of the penis 2 days ago. Denies any recent sexual activity. Denies penile discharge any urinary frequency dysuria. A dry skin irritation noted in the right lateral penile area which is not suggesting any syphilis rash versus herpes. She denies any pruritus or pain in the affected area. Patient reports some hydrogen peroxide over the affected area and feels like there color discoloration and occurred right after. Denies testicular pain. Allergies: Coded Allergies: PENICILLINS (Verified Allergy, Unknown, 05/01/16) Patient History Past Medical History: see triage record Past Surgical History: unable to obtain Pertinent Family History: none Immunizations: UTD Reviewed Nursing Documentation: PMH: Agreed; PSxH: Agreed Nursing Documentation-PMH Past Medical History: No History, Except For Hx Asthma: Yes Review of Systems All Other Systems: negative except mentioned in HPI Physical Exam Vital Signs Date Time Temp Pulse Resp B/P (MAP) Pulse Ox O2 Delivery O2 Flow Rate FiO2 03/20/19 17:24 98.2 95 16 145/86 (105) 97 Room Air Sp02 EP Interpretation: reviewed, normal General Appearance: no apparent distress, alert, GCS 15, non-toxic Head: normocephalic, atraumatic Eyes: bilateral eye normal inspection, bilateral eye PERRL ENT: hearing grossly normal, normal pharynx, no angioedema, normal voice Neck: full range of motion, supple, supple/symm/no masses Respiratory: chest non-tender, lungs clear, normal breath sounds, no wheezing, speaking full sentences Cardiovascular #1: regular rate, rhythm, no edema, no murmur, normal capillary refill Gastrointestinal: normal bowel sounds, non tender, soft, non-distended, no guarding, no rebound Rectal: deferred Genitourinary: no CVA tenderness, scrotum normal, other - Dry white macular lesion on the right lateral penis without any pus formation Musculoskeletal: back normal Neurologic: alert, oriented x3, responsive, motor strength/tone normal, sensory intact, speech normal Psychiatric: judgement/insight normal, memory normal, mood/affect normal, no suicidal/homicidal ideation Skin: rash - Dry macular white lesion in the right lateral penis, no erythema, no edema, no pus Lymphatic: normal inspection, no adenopathy Medical Decision Making PA Attestation All my diagnosis and treatment plans were reviewed ad discussed with my supervising physician Dr. Martínez Diagnostic Impression: Primary Impression: Medication refill Additional Impressions: Asthma Penile lesion ER Course 28-year-old male with history of asthma here requesting a refill on his albuterol inhaler. Patient denies any asthma exacerbation cough and congestion reports that he smokes marijuana daily and has noticed more wheezing in the morning. Denies chest pain, shortness of breath, palpitation, abdominal pain, nausea vomiting. Denies cough and congestion. Patient also reports that he noticed a penile lesion on the right lateral side of the penis 2 days ago. Denies any recent sexual activity. Denies penile discharge any urinary frequency dysuria. A dry skin irritation noted in the right lateral penile area which is not suggesting any syphilis rash versus herpes. She denies any pruritus or pain in the affected area. Patient reports some hydrogen peroxide over the affected area and feels like there color discoloration and occurred right after. Denies testicular pain. Ddx considered but are not limited to: bronchitis, PNA, URI viral, asthma, contact dermatitis versus syphilis versus malignancy of the skin Vital signs: are WNL, pt. is afebrile H&PE are most consistent with: Penile lesion, asthma ORDERS: Albuterol inhaler, Lotrisone cream, triamcinolone cream ED INTERVENTIONS: None required at this time. DISCHARGE: At this time pt. is stable for d/c to home. Will provide printed patient care instructions, and any necessary prescriptions. Care plan and follow up instructions have been discussed with the patient prior to discharge. Patient to follow with patternmaker helper for skin biopsy for further assessment if symptoms continue Last Vital Signs Date Time Temp Pulse Resp B/P (MAP) Pulse Ox O2 Delivery O2 Flow Rate FiO2 03/20/19 17:24 98.2 95 16 145/86 (105) 97 Room Air Disposition: HOME, SELF-CARE Condition: Stable Scripts Triamcinolone Acet (Triamcinolone Acetonide) 15 Gm Cream..g. 2 GM APPLIC BID, #15 GM Prov: Fabrizio Norwood 03/20/19 Clotrimazole/Betamethasone Dip* (LOTRISONE CREAM*) 15 Gm Cream..g. 2 GM TP TWICE A DAY, #15 GM 0 Refills Prov: Fabrizio Norwood 03/20/19 Albuterol Sulfate (VENTOLIN HFA) 18 Gm Hfa.aer.ad 2 PUFFS INH EVERY 6 HOURS, #18 GM 0 Refills Prov: Fabrizio Norwood 03/20/19 Patient Instructions: Asthma, Adult, Contact Dermatitis, [id number] Additional Instructions: Take medication as directed follow-up with your primary care provider for refills of your albuterol. Also have a primary care provider send you to a patternmaker helper for skin biopsy if lesion grows in size. Fabrizio Norwood Mar 20, 2019 17:39
[2019-03-20] MEDS ORDERED: LOTRISONE CREAM15 GM TP (17:41)
[2019-03-20] MEDS ORDERED: VENTOLIN HFA18 GM INH (17:41)
[2019-03-20] MEDS ORDERED: KENALOG 0.025%15 GM APPLIC (17:41)
--- NOTE | 2019-03-20 17:45 | NUR ---
ER DISCHARGE NOTE: Patient is cleared to be discharged per ERMD, pt is aox4, on room air, with stable vital signs. pt was given dc and prescription instructions, pt was able to verbalize understanding, pt is able to ambulate with steady gait. pt took all belongings.
[2019-03-20 19:15] VITALS: BP 145/86
[2019-03-20 19:16] VITALS: BP 145/86
== END 2019-03-20 18:00 | disposition home or self-care (01) ==
LOC: EMR 17:38
DX: J45.909 Unspecified asthma, uncomplicated (principal); Z76.0 Encounter for issue of repeat prescription; L98.9 Disorder of the skin and subcutaneous tissue, unspecified; F12.10 Cannabis abuse, uncomplicated
CPT/HCPCS: 99282